=== PATIENT | female | born 1975 | race Caucasian/White ===

== ENCOUNTER 2022-12-18 00:06 | Emergency (ER) | payer OTHER ==
[~2022-12-18] VITALS: Ht 162.6 cm; Wt 81.6 kg
[2022-12-18 00:15] VITALS: BP_SYST 137
--- NOTE | 2022-12-18 00:24 | NUR ---
PATIENT PRESENT WITH RIGHT SIDED FACIAL PAIN, STATES SHE HAS A TOOTH ON THE RIGHT UPPER SIDE THAT HURTS AND WAS CHECKED BY DENTIST, RIGHT EAR PAIN NOTED AT 10/10, VITALS SIGNS ARE STABLE
[2022-12-18] MEDS ORDERED: KETOROLAC TROMETHAMINE 60 MG/2 ML VIAL IM ONE (00:45)
--- NOTE | 2022-12-18 01:32 | NUR ---
MD DR HUERTA BY BEDSIDE WITH PT
[2022-12-18] MEDS ORDERED: HYDR-3917 PO (01:42)
--- NOTE | 2022-12-18 02:03 | NUR ---
Patient given written and verbal discharge instructions and verbalizes understanding. ER MD discussed with patient the results and treatment provided. Patient in stable condition. ID arm band removed. Rx of NORCO given. Patient educated on pain management and to follow up with PMD. Pain Scale . Opportunity for questions provided and answered. Medication side effect fact sheet provided.
[2022-12-18 02:33] VITALS: BP_SYST 137
--- NOTE | 2022-12-18 02:36 | NUR ---
[place] sexton in [facility] - 12/18/22 at 0240 by [email or web address] SHARON Sosa at bedside examining patient.
== END 2022-12-18 02:33 | disposition home or self-care (01) ==
LOC: SED 00:06
DX: K08.89 Other specified disorders of teeth and supporting structures (principal); H92.01 Otalgia, right ear; H57.11 Ocular pain, right eye; Z79.899 Other long term (current) drug therapy
CPT/HCPCS: 99283; 96372; J1885